=== PATIENT | male | born 1980 | race Caucasian/White ===

== ENCOUNTER 2017-09-28 07:14 | Emergency (ER) | payer BC ==
[2017-09-28] MEDS ORDERED: Pepcid 20 MG VIAL IV ONE ×2 (07:39→07:49)
--- NOTE | 2017-09-28 07:46 | ERPHSYRPT ---
- History of Present Illness Time Seen by Provider: 09/28/17 07:29 Historian: patient Patient Subjective Stated Complaint: PT states "Last thursday the right side of my stomach started to hurt. I went to [facility] and they gave me prilosec and told me to schedule an ultrasound for my gall bladder and I have that this upcoming thursday. I cannot take the pain any more." Triage Nursing Assessment: Pt alert and oriented X 3, skin pwd. Pt ambulates with an upright steady gait, able to speak in full sentences. Pt no apparent respiratory distress. Physician History: CC: abd pain Hx: 37 y/o [facility] [employer] with right sided abd pain since last week. He saw [facility] and is scheduled for a GB sonogram Thu. The pain was worse yesterday so he came to ER today. He is a pt of SALONI Marr. He has chronic pain syndrome with chronic foot/ankle pain post injury controlled with injections and opioids with plans for eventual subtalar fusion. No prior abd surgeries. He has hard stools without blood. Normal urination. [place] hot sweats but no fever or chills. No back pain. No hx of kidney stones. Pain is moderate. Declines pain meds at present. He has no nausea or vomiting. Timing/Duration: week(s) (1) Severity of Pain-Max: moderate Severity of Pain-Current: mild Allergies/Adverse Reactions: No Known Drug Allergies Allergy (Unverified 10/24/16 07:47) Home Medications: Armodafinil [Nuvigil] 125 mg PO DAILY 10/24/16 [History] Dextroamphetamine/Amphetamine [Adderall 20 mg Tablet] 20 mg PO BID 10/24/16 [ History] Ibuprofen 800 mg PO TID 10/24/16 [History] Testosterone Cypionate 100 mg IM .WEEKLY 10/24/16 [History] Oxycodone HCl/Acetaminophen [Percocet 5-325 mg Tablet] 1 each PO Q6HPRN PRN [History] Varenicline Tartrate [Chantix] 1 mg PO DAILY 09/28/17 [History] Hx Tetanus, Diphtheria Vaccination/Date Given: Yes Hx Influenza Vaccination/Date Given: Yes Immunizations Up to Date: Yes - Review of Systems Constitutional: No Fever, No Chills Eyes: No Symptoms Ears, Nose, & Throat: No Symptoms Respiratory: No Cough, No Dyspnea Cardiac: No Chest Pain Abdominal/Gastrointestinal: Abdominal Pain, Constipation, No Nausea, No Vomiting , No Diarrhea Genitourinary Symptoms: No Dysuria, No Hematuria Skin: No Rash Neurological: No Headache All Other Systems: Reviewed and Negative - Past Medical History Pertinent Past Medical History: Yes Other Medical History: ADHD. 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) - Nursing Vital Signs Nursing Vital Signs: Initial Vital Signs Temperature 97.6 F 09/28/17 07:19 Pulse Rate 80 09/28/17 07:19 Respiratory Rate 18 09/28/17 07:19 Blood Pressure 143/86 09/28/17 07:19 O2 Sat by Pulse Oximetry 99 09/28/17 07:19 Pain Scale Pain Intensity 8 - Physical Exam General Appearance: alert Eye Exam: PERRL/EOMI Ears, Nose, Throat Exam: normal ENT inspection, moist mucous membranes Neck Exam: normal inspection, non-tender, supple Respiratory Exam: normal breath sounds, lungs clear Cardiovascular Exam: regular rate/rhythm, No murmur Gastrointestinal/Abdomen Exam: soft, tenderness (right more lower, positive pfeiffer), No mass, No guarding, No hernia Male Genitalia Exam: No hernia, No testicular tenderness Back Exam: normal inspection, normal range of motion, No CVA tenderness Extremity Exam: normal inspection, normal range of motion Neurologic Exam: alert, oriented x 3, cooperative, 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 as tested, sensation nml, No motor deficits Skin Exam: warm, dry, No rash SpO2 Interpretation: normal SpO2: 99 Oxygen Delivery: Room Air - Course Nursing assessment & vital signs reviewed: Yes - CT Exams abd/pelvis CT Interpretation: Tele-radiologist Report, Normal Appendix, Other (fecal stasis without obstruction, splenomegaly, remaining CT abd/pelvis with contrast is negative) Ordered Tests: Active Orders 24 hr Category Date Time Status Clean Catch Urine Specimen STAT Care 09/28/17 07:39 Active IV Insertion STAT Care 09/28/17 07:39 Active ABDOMEN AND PELVIS W CONTRAST [CT] Stat Exams 09/28/17 07:39 Completed CBC W DIFF Stat Lab 09/28/17 07:45 Completed CMP Stat Lab 09/28/17 07:45 Completed LIPASE Stat Lab 09/28/17 07:45 Completed Lactic Acid Stat Lab 09/28/17 07:39 Completed UA W/ MICROSCOPIC Stat Lab 09/28/17 07:39 Completed Medication Summary Discontinued Medications Generic Name Dose Route Start Last Admin Trade Name Stevenq PRN Reason Stop Dose Admin Famotidine 20 mg 09/28/17 07:39 09/28/17 07:50 Pepcid 20 Mg Vial IV 09/28/17 07:40 20 mg STAT ONE Administration Famotidine Confirm 09/28/17 07:49 Pepcid 20 Mg Vial Administered 09/28/17 07:50 Dose 20 mg IV .STK-MED ONE Ketorolac Tromethamine 30 mg 09/28/17 08:37 09/28/17 08:41 Toradol 30 Mg Injection IV 09/28/17 08:38 30 mg STAT ONE Administration Ketorolac Tromethamine Confirm 09/28/17 08:40 Toradol 30 Mg Injection Administered 09/28/17 08:41 Dose 30 mg .ROUTE .STK-MED ONE Lab/Rad Data: Laboratory Result Diagrams 09/28/17 07:45 09/28/17 07:45 Laboratory Results 09/28/17 09/28/17 09/28/17 Range/Units 07:45 07:45 07:39 WBC 7.9 (4.0-10.5) K/mm3 RBC 5.83 H (4.1-5.6) M/mm3 Hgb 18.3 H (12.5-18.0) gm/dl Hct 53.0 H (42-50) % MCV 90.9 (78-100) fl MCH 31.3 (26-32) pg MCHC 34.5 (32-36) g/dl RDW 13.3 (11.5-14.0) % Plt Count 167 (150-450) K/mm3 MPV 10.2 H (6-9.5) fl Gran % 52.4 (36.0-66.0) % Lymphocytes % 33.9 (24.0-44.0) % Monocytes % 11.2 (0.0-12.0) % Eosinophils % 2.1 (0.00-5.0) % Basophils % 0.4 (0.0-0.4) % Basophils # 0.03 (0-0.4) Sodium 138 (136-145) mEq/L Potassium 4.2 (3.5-5.1) mEq/L Chloride 102 (98-107) mEq/L Carbon Dioxide 26.6 (21-32) mEq/L Anion Gap 13.5 (5-15) MEQ/L BUN 19 (9-20) mg/dL Creatinine 0.91 (0.55-1.30) mg/dl Estimated GFR > 60 ML/MIN Glucose 114 H (70-110) MG/DL Lactic Acid 1.3 (0.4-2.0) Calcium 8.9 (8.5-10.1) mg/dL Total Bilirubin 0.50 (0.2-1.0) mg/dL AST 27 (15-37) U/L ALT 67 (12-78) U/L Alkaline Phosphatase 95 (46-116) U/L Serum Total Protein 7.5 (6.4-8.2) gm/dL Albumin 3.9 (3.4-5.0) g/dL Lipase 87 (73-393) U/L Ur Collection Type Urine Color (YELLOW) Urine Appearance (CLEAR) Urine pH (5-6) Ur Specific [place] (1.005-1.025) Urine Protein (Negative) Urine Ketones (NEGATIVE) Urine Blood (0-5) Gustavo/ul Urine Nitrite (NEGATIVE) Urine Bilirubin (NEGATIVE) Urine Urobilinogen (0-1) mg/dL Ur Leukocyte Esterase (NEGATIVE) Urine Culture Reflexed (NO) Urine Glucose (NEGATIVE) mg/dL Specimen Received 09/28/17 Range/Units 07:39 WBC (4.0-10.5) K/mm3 RBC (4.1-5.6) M/mm3 Hgb (12.5-18.0) gm/dl Hct (42-50) % MCV (78-100) fl MCH (26-32) pg MCHC (32-36) g/dl RDW (11.5-14.0) % Plt Count (150-450) K/mm3 MPV (6-9.5) fl Gran % (36.0-66.0) % Lymphocytes % (24.0-44.0) % Monocytes % (0.0-12.0) % Eosinophils % (0.00-5.0) % Basophils % (0.0-0.4) % Basophils # (0-0.4) Sodium (136-145) mEq/L Potassium (3.5-5.1) mEq/L Chloride (98-107) mEq/L Carbon Dioxide (21-32) mEq/L Anion Gap (5-15) MEQ/L BUN (9-20) mg/dL Creatinine (0.55-1.30) mg/dl Estimated GFR ML/MIN Glucose (70-110) MG/DL Lactic Acid (0.4-2.0) Calcium (8.5-10.1) mg/dL Total Bilirubin (0.2-1.0) mg/dL AST (15-37) U/L ALT (12-78) U/L Alkaline Phosphatase (46-116) U/L Serum Total Protein (6.4-8.2) gm/dL Albumin (3.4-5.0) g/dL Lipase (73-393) U/L Ur Collection Type CCMS Urine Color YELLOW (YELLOW) Urine Appearance CLEAR (CLEAR) Urine pH 5.0 (5-6) Ur Specific [place] 1.025 (1.005-1.025) Urine Protein NEGATIVE (Negative) Urine Ketones NEGATIVE (NEGATIVE) Urine Blood NEGATIVE (0-5) Gustavo/ul Urine Nitrite NEGATIVE (NEGATIVE) Urine Bilirubin NEGATIVE (NEGATIVE) Urine Urobilinogen NORMAL (0-1) mg/dL Ur Leukocyte Esterase NEGATIVE (NEGATIVE) Urine Culture Reflexed NO (NO) Urine Glucose NEGATIVE (NEGATIVE) mg/dL Specimen Received 09/28 0900 - Progress Progress Note: 09/28/17 07:[address] to evaluate for appendicitis or renal stone disease or GB pathology. 09/28/17 09:51 Pt stable. He is on OTC prilosec. Will increase to 40mg daily. He has sono scheduled Wed and appt with SALONI Martinez. Will follow up. Counseled pt/family regarding: lab results, diagnosis, need for follow-up, rad results - Departure Time of Disposition: 09:51 Departure Disposition: Home Clinical Impression: Right sided abdominal pain Condition: Stable Critical Care Time: No Referrals: ALISHA MARR [Primary Care Provider] - Instructions: Acute Abdomen (Belly Pain) Additional Instructions: ABDOMINAL PAIN 1. There are several different causes for abdominal pain, some of which may not be able to be identified on initial examination. 2. The important thing to remember is that bodily functions can change in a short period of time. If you notice any of the following symptoms, return to the emergency department or consult your doctor immediately: A. Worsening pain or no improvement in the next 12 hours. B. Increasing, severe abdominal pain C. Blood in stool D. Black stools E. Persistent vomiting F. Fever or chills or other symptoms Take 40mg prilose daily. Take docusate stool softener twice a day. Get your sonogram as scheduled Thu. See SALONI Marr as scheduled . Prescriptions: Omeprazole [Prilosec] 40 mg PO DAILY #30 capsule.
[2017-09-28 07:54] LABS: BASOPHIL % 0.4 % (0.0-0.4); Basophil (Absolute #) 0.03 (0-0.4); Eosinophil % 2.1 % (0.00-5.0); Eosinophil (Absolute #) 0.17 (0-0.5); Granulocyte Absolute (ANC) 4.15 (1.4-6.9); Granulocytes % 52.4 % (36.0-66.0); Hemoglobin 18.3 gm/dl (12.5-18.0); Lymphocyte (Absolute #) 2.69 (1.0-4.6); Lymphocytes % 33.9 % (24.0-44.0); Mean Cell Volume 90.9 fl (78-100); Mean Corpuscular Hgb Concent. 34.5 g/dl (32-36); Mean Platelet Volume 10.2 fl (6-9.5); Monocyte (Absolute #) 0.89 (0.0-1.3); Monocytes % 11.2 % (0.0-12.0); Platelet Count 167 K/mm3 (150-450); Red Blood Count 5.83 M/mm3 (4.1-5.6); Red Cell Distribution Width 13.3 % (11.5-14.0); White Blood Count 7.9 K/mm3 (4.0-10.5)
[2017-09-28 07:56] LABS: Mean Corpuscular Hemoglobin 31.3 pg (26-32)
[2017-09-28 08:16] LABS: ALBUMIN 3.9 g/dL (3.4-5.0); ALKALINE PHOSPHATASE 95 U/L (46-116); ANION GAP 13.5 MEQ/L (5-15); BLOOD UREA NITROGEN 19 mg/dL (9-20); CHLORIDE 102 mEq/L (98-107); Calcium 8.9 mg/dL (8.5-10.1); Carbon Dioxide 26.6 mEq/L (21-32); Creatinine 1 0.91 mg/dl (0.55-1.30); Glucose 114 MG/DL (70-110); LIPASE 87 U/L (73-393); Potassium 4.2 mEq/L (3.5-5.1); SGOT/AST 27 U/L (15-37); SGPT/ALT 67 U/L (12-78); SODIUM 138 mEq/L (136-145); Total Protein 7.5 gm/dL (6.4-8.2)
[2017-09-28] MEDS ORDERED: TORAdol 30 mg Injection IV ONE (08:37)
[2017-09-28] MEDS ORDERED: TORAdol 30 mg Injection ONE (08:40)
[2017-09-28 09:09] LABS: Appearance CLEAR (CLEAR); Bilirubin NEGATIVE (NEGATIVE); Blood NEGATIVE Ery/ul (0-5); Glucose NEGATIVE (NEGATIVE); Ketones NEGATIVE (NEGATIVE); Leukocyte Esterase NEGATIVE (NEGATIVE); Nitrite NEGATIVE (NEGATIVE); Protein,Urine Dip NEGATIVE (Negative); Specific Gravity 1.025 (1.005-1.025); Urobilinogen NORMAL mg/dL (0-1)
--- NOTE | 2017-09-28 09:30 | XRAY ---
Indication: Right lower abdominal pain one week. Multiple contiguous axial images obtained through the abdomen and pelvis using 80 cc Isovue 370 contrast. Enteric contrast also given. Comparison: None Lung bases demonstrates minimal bibasilar dependent atelectasis and right base calcified granuloma. Heart is not enlarged. Contrasted stomach and bowel loops appear nonobstructed. There is moderate diffuse scattered colonic fecal debris throughout. Normal appendix. No free fluid/air. Spleen is enlarged measuring 13.5 cm in greatest axial dimension. Remaining liver, gallbladder, pancreas, spleen, adrenal glands, kidneys, ureters, bladder, and aorta appear unremarkable. No pathologic retroperitoneal lymphadenopathy. Osseous structures intact. Impression: 1. Fecal stasis without obstruction. 2. Splenomegaly. 3. Remaining CT abdomen/pelvis with contrast exam is negative. CT DI 13.78
[2017-09-28 09:59] VITALS: BP 127/92; PULSE 78; O2SAT 96
== END 2017-09-28 10:02 | disposition home or self-care (01) ==
LOC: ED 07:14
DX: R10.9 Unspecified abdominal pain (principal); Z79.899 Other long term (current) drug therapy
CPT/HCPCS: 36000; 36415; 74177; 80053; 81000; 83605; 83690; 85025; 96374; 96375; 99284; J1885

== ENCOUNTER 2017-12-27 10:14 | Emergency (ER) | payer BC ==
[2017-12-27 10:34] VITALS: O2SAT 98
[2017-12-27] MEDS ORDERED: TORAdol 30 mg Injection IM ONE (10:40)
--- NOTE | 2017-12-27 10:46 | ERPHSYRPT ---
- History of Present Illness Time Seen by Provider: 12/27/17 10:42 Source: patient Exam Limitations: no limitations Patient Subjective Stated Complaint: Pt states "I got aggrivated and I kicked a door." Triage Nursing Assessment: Pt alert and oriented X 3, skin pwd Pt ambulates with a limp. Pt able to speak in clear full sentences. Great toe on pt right foot has bruising to joint and pt has slight loss of movement. circulation is good, sensation is good. Physician History: 37-year-old white male arrives with complaint of pain in his distal right foot and great toe symptoms since yesterday. Patient states he kicked a door. Past medical history includes ADHD, low testosterone. Past surgical history includes ORIF right heel left hand and fractured jaw. Method of Injury: other (kicked a door) Occurred: yesterday Quality: constant Severity of Pain-Max: mild Severity of Pain-Current: mild Lower Extremities Pain: foot: right Modifying Factors: Improves With: nothing Associated Symptoms: none Allergies/Adverse Reactions: No Known Drug Allergies Allergy (Verified 12/27/17 10:33) Home Medications: Armodafinil [Nuvigil] 125 mg PO DAILY 10/24/16 [History] Dextroamphetamine/Amphetamine [Adderall 20 mg Tablet] 20 mg PO BID 10/24/16 [ History] Testosterone Cypionate 100 mg IM .WEEKLY 10/24/16 [History] Oxycodone HCl/Acetaminophen [Percocet 5-325 mg Tablet] 1 each PO Q6HPRN PRN [History] Hx Tetanus, Diphtheria Vaccination/Date Given: Yes Hx Influenza Vaccination/Date Given: Yes Hx Pneumococcal Vaccination/Date Given: No Immunizations Up to Date: Yes - Review of Systems Constitutional: No Fever, No Chills Eyes: No Symptoms Ears, Nose, & Throat: No Symptoms Respiratory: No Cough, No Dyspnea Cardiac: No Chest Pain, No Edema, No Syncope Abdominal/Gastrointestinal: No Abdominal Pain, No Nausea, No Vomiting, No Diarrhea Genitourinary Symptoms: No Dysuria Musculoskeletal: Other (right foot pain and bruising) Skin: No Rash Neurological: No Dizziness, No Focal Weakness, No Sensory Changes Psychological: No Symptoms Endocrine: No Symptoms All Other Systems: Reviewed and Negative - Past Medical History Pertinent Past Medical History: Yes Other Medical History: ADHD. low testosterone - Past Surgical History Past Surgical History: Yes - Social History Smoking Status: Current every day smoker How long have you smoked: years Exposure to second hand smoke: Yes Alcohol Use: he is a drinker of alcohol Drug Use: none Patient Lives Alone: No - Nursing Vital Signs Nursing Vital Signs: Initial Vital Signs Temperature 99.1 F 12/27/17 10:28 Pulse Rate 76 12/27/17 10:28 Respiratory Rate 16 12/27/17 10:28 Blood Pressure 151/102 12/27/17 10:28 O2 Sat by Pulse Oximetry 98 12/27/17 10:28 Pain Scale Pain Intensity 5 - Physical Exam General Appearance: alert Eyes, Ears, Nose, Throat Exam: moist mucous membranes Neck Exam: non-tender, supple Cardiovascular/Respiratory Exam: chest non-tender, normal breath sounds, regular rate/rhythm, no respiratory distress Gastrointestinal/Abdominal Exam: non-tender, guarding Back Exam: normal inspection, No vertebral tenderness Hips Exam: bilateral: non-tender, normal inspection, normal range of motion, no evidence of injury Legs Exam: bilateral leg: non-tender, normal inspection, normal range of motion , no evidence of injury Knees Exam: bilateral knee: non-tender, normal inspection, normal range of motion, no evidence of injury Ankle Exam: bilateral ankle: non-tender, normal inspection, normal range of motion, no evidence of injury Foot Exam: right foot: bone tenderness (tenderness at base of right great toe), ecchymosis (ecchymosis distal right foot and right great toe), left foot: non- tender, normal inspection, no evidence of injury, bilateral foot: normal range of motion Neuro/Tendon Exam: normal sensation, normal motor functions, normal tendon functions Mental Status Exam: alert, oriented x 3, cooperative Skin Exam: normal color, warm, dry SpO2 Interpretation: normal (98%) SpO2: 98 Oxygen Delivery: Room Air - Course Nursing assessment & vital signs reviewed: Yes - Radiology Exams Right Foot X-ray Interpretation: Interpreted by me, Other (x-ray right foot: Question old fractures running longitudinally proximal first phalanx and distal first metacarpal) Ordered Tests: Active Orders 24 hr Category Date Time Status Splint STAT Care 12/27/17 11:10 Active FOOT (MINIMUM 3 VIEWS) Stat Exams 12/27/17 10:41 Taken Medication Summary Discontinued Medications Generic Name Dose Route Start Last Admin Trade Name Lilliam PRN Reason Stop Dose Admin Ketorolac Tromethamine 60 mg 12/27/17 10:40 12/27/17 11:05 Toradol 30 Mg Injection IM 12/27/17 10:41 60 mg STAT ONE Administration Ketorolac Tromethamine Confirm 12/27/17 11:04 Toradol 30 Mg Injection Administered 12/27/17 11:05 Dose 60 mg .ROUTE .STK-MED ONE - Progress Progress: improved Progress Note: 12/27/17 11:09 37-year-old white male arrives with complaint of pain in his right foot at the base of the right great toe after kicking a door yesterday. Patient does have a history of a fracture of the right calcaneous with ORIF. He has bruising on physical examination to the proximal right great toe and the distal right foot superior to the right great toe. He does not appear to be in acute distress. X-rays of the right foot show questionable old fractures running longitudinally along the distal first metacarpal and the proximal first phalanx. Will go ahead and place patient on postop shoe. Patient has been given Toradol 60 IM. Will plan postop shoe and nonsteroidals follow-up with family doctor. - Departure Time of Disposition: 11:13 Departure Disposition: Home Clinical Impression: questionable old fracture R great toe Contusion of right foot Qualifiers: Encounter type: initial encounter Qualified Code(s): S90.31XA - Contusion of right foot, initial encounter Sprain of right great toe Qualifiers: Encounter type: initial encounter Qualified Code(s): S93.501A - Unspecified sprain of right great toe, initial encounter Condition: Fair Critical Care Time: No Referrals: ALISHA TOSCANO [Primary Care Provider] - Instructions: Contusion (DC), Foot Sprain (DC) Additional Instructions: Return home. Ice and elevate right 24 foot 24-48 hours. Wear postop shoe. Continue your ibuprofen and [place] you have at home as needed for pain. Follow-up with your family doctor 24-48 hours. Return for acute distress or for severe symptoms. Your x-rays have been preliminarily read they will be reread tomorrow you will be contacted if any discrepancies are noted.
[2017-12-27] MEDS ORDERED: TORAdol 30 mg Injection ONE (11:04)
[2017-12-27 11:09] VITALS: BP 126/85; PULSE 75
--- NOTE | 2017-12-27 20:01 | XRAY ---
Indication: Pain following kicking injury. Comparison: April 02, 2017. 3 nonweightbearing views of the right foot demonstrates new nondisplaced longitudinal fracture involving the proximal great toe with intra-articular extension. Stable old heel fracture with intact fixation plate/screws and tiny plantar heel spur. No other bony, articular, or soft tissue abnormalities.
== END 2017-12-27 11:49 | disposition home or self-care (01) ==
LOC: ED 10:14
DX: S90.31XA Contusion of right foot, initial encounter (principal); S93.501A Unspecified sprain of right great toe, initial encounter; W22.09XA Striking against other stationary object, initial encounter; Z87.81 Personal history of (healed) traumatic fracture
CPT/HCPCS: 73630; 96372; 99284; J1885

== ENCOUNTER 2019-12-17 10:13 | Emergency (ER) | payer OTHER ==
[2019-12-17] MEDS ORDERED: Fluor-I-Strip/Ful-Flo OP ONE ×2 (10:28→10:29)
[2019-12-17] MEDS ORDERED: TETRACAINE 0.5% STERI-UNIT SOL OP ONE (10:29)
[2019-12-17] MEDS ORDERED: Eye-Stream Solution ONE (10:29)
[2019-12-17] MEDS ORDERED: Eye-Stream Solution OP ONE (10:30)
[2019-12-17] MEDS ORDERED: TETRACAINE 0.5% STERI-UNIT SOL OP STA (10:31)
--- NOTE | 2019-12-17 10:42 | ERPHSYRPT ---
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 Now pain, redness, blepharospasm, photophobia Timing/Duration: day(s) (2) Location: right eye Severity: moderate Apparent Injury: possibly Associated Symptoms: pain, burning, sensitivity to light, redness, foreign body sensation Visual Assistive Devices: None Chemical Exposure: No Trauma: Yes Allergies/Adverse Reactions: No Known Drug Allergies Allergy (Verified 12/17/19 10:18) Home Medications: Dextroamphetamine/Amphetamine [Adderall 20 mg Tablet] 20 mg PO BID 10/24/16 [ History] Testosterone Cypionate 100 mg IM .WEEKLY 10/24/16 [History] armodafiniL [Nuvigil] 125 mg PO DAILY 10/24/16 [History] Oxycodone HCl/Acetaminophen [Percocet 5-325 mg Tablet] 1 each PO Q6HPRN PRN [History] Hx Tetanus, Diphtheria Vaccination/Date Given: Yes Hx Influenza Vaccination/Date Given: Yes Hx Pneumococcal Vaccination/Date Given: No Travel Risk - International Travel Have you traveled outside of the country in past 3 weeks: No Have you or anyone close to you been diagnosed with or: No Do your reside in a community with a known COVID-19 case?: Yes If Yes where:: [place] - Review of Systems Constitutional: No Fever, No Chills Eyes: Eye Pain, Eye Redness, Photophobia, Tearing, Foreign Body Sensation Ears, Nose, & Throat: No Symptoms Respiratory: No Cough, No Dyspnea Cardiac: No Chest Pain, No Edema, No Syncope Abdominal/Gastrointestinal: No Abdominal Pain, No Nausea, No Vomiting, No Diarrhea Genitourinary Symptoms: No Dysuria Musculoskeletal: No Back Pain, No Neck Pain Skin: No Rash Neurological: No Dizziness, No Focal Weakness, No Sensory Changes Psychological: No Symptoms Endocrine: No Symptoms All Other Systems: Reviewed and Negative - Past Medical History Pertinent Past Medical History: Yes Other Medical History: ADHD. low testosterone - Past Surgical History Past Surgical History: Yes - Social History Smoking Status: Current every day smoker How long have you smoked: years Exposure to second hand smoke: Yes Alcohol Use: he is a drinker of alcohol Drug Use: none Patient Lives Alone: No - Nursing Vital Signs Nursing Vital Signs: Initial Vital Signs Temperature 98.0 F 12/17/19 10:19 Pulse Rate 96 H 12/17/19 10:19 Respiratory Rate 18 12/17/19 10:19 Blood Pressure 145/66 12/17/19 10:19 O2 Sat by Pulse Oximetry 98 12/17/19 10:19 Pain Scale Pain Intensity 4 - Physical Exam General Appearance: mild distress Vision Acuity Degree Evaluation Phase: Uncorrected Vision Acuity Right Eye: 20/50 Vision Acuity Left Eye: 20/30 Eye Exam: right eye: conjunctival inflammation, corneal abrasion, foreign body ( Embedded FB with rust ring), left eye: normal inspection Ears, Nose, Throat Exam: normal ENT inspection Neck Exam: normal inspection Respiratory Exam: normal breath sounds Cardiovascular Exam: regular rate/rhythm, normal heart sounds Gastrointestinal Exam: soft, normal bowel sounds Extremity Exam: normal inspection, normal range of motion Neurologic: alert, oriented x 3 Skin Exam: normal color, warm, dry SpO2 Interpretation: normal SpO2: 98 O2 Delivery: Room Air Procedures - Eye Procedure Tetracaine Drops Administered: Yes Eye FB Removal: other Remaining Material after FB Removal: rust ring Progress: referred to Dr Miller for removal of residual FB and rust ring - Course Nursing assessment & vital signs reviewed: Yes Ordered Tests: Medication Summary Discontinued Medications Generic Name Dose Route Start Last Admin Trade Name Lilliam PRN Reason Stop Dose Admin Eye Irrigation Solution 15 ml 12/17/19 10:30 12/17/19 10:33 Eye-Stream Solution OP 12/17/19 10:31 15 ml STAT ONE Administration Eye Irrigation Solution Confirm 12/17/19 10:29 Eye-Stream Solution Administered 12/17/19 10:30 Dose 30 ml .ROUTE .STK-MED ONE Fluorescein Sodium 1 mg 12/17/19 10:28 12/17/19 10:35 Qnzwg-L-Zebjw/Ful-Hugo OP 12/17/19 10:29 1 mg STAT ONE Administration Fluorescein Sodium Confirm 12/17/19 10:29 Hnymo-I-Ixwgy/Ful-Hugo Administered 12/17/19 10:30 Dose 1 mg OP .STK-MED ONE Tetracaine HCl Confirm 12/17/19 10:29 Tetracaine 0.5% Steri-Unit Kelly Administered 12/17/19 10:30 Dose 4 ml OP .STK-MED ONE Tetracaine HCl 4 ml 12/17/19 10:31 12/17/19 10:33 Tetracaine 0.5% Steri-Unit Kelly OP 12/17/19 10:32 4 ml STAT STA Administration - Progress Progress: unchanged - Departure Departure Disposition: Home Clinical Impression: Corneal foreign body with residual material Condition: Stable Critical Care Time: No Referrals: ALISHA TOSCANO [Primary Care Provider] - Instructions: Foreign Body in Eye (DC) Additional Instructions: See Dr Miller at [facility] today at [facility]
[2019-12-17 11:00] VITALS: BP 116/63; PULSE 89; O2SAT 95
== END 2019-12-17 11:00 | disposition home or self-care (01) ==
LOC: ED 10:13
DX: H05.51 Retained (old) foreign body following penetrating wound of right orbit (principal); Z18.89 Other specified retained foreign body fragments; W31.89XA Contact with other specified machinery, initial encounter
CPT/HCPCS: 99283; A9270-GY